=== PATIENT | male | born 1995 | race Caucasian/White ===

== ENCOUNTER 2021-10-29 10:51 | Outpatient (CLI) | payer OTHER | END 2021-10-29 10:52 | disposition home or self-care (01) | LOC: TOM 10:51 | PROVIDERS: ATTEND General Practice | DX: R04.2 Hemoptysis (principal) ==

== ENCOUNTER 2021-11-05 08:59 | Outpatient (CLI) | payer OTHER | END 2021-11-05 09:13 | disposition home or self-care (01) | LOC: TOM 08:59 | DX: R04.2 Hemoptysis (principal) | CPT/HCPCS: 71275 ==

== ENCOUNTER 2021-12-28 11:43 | Outpatient (CLI) | payer OTHER | END 2021-12-28 11:54 | disposition home or self-care (01) | LOC: TOM 11:43 | DX: R91.8 Other nonspecific abnormal finding of lung field (principal) ==

== ENCOUNTER 2022-02-10 10:31 | Outpatient (CLI) | payer OTHER | END 2022-02-10 10:41 | disposition home or self-care (01) | LOC: NUCLEAR 10:31 | DX: R06.00 Dyspnea, unspecified (principal); R91.8 Other nonspecific abnormal finding of lung field ==

== ENCOUNTER 2022-03-19 15:05 | Outpatient (CLI) | payer OTHER | END 2022-03-19 15:10 | disposition home or self-care (01) | LOC: LAB 15:05 | PROVIDERS: ATTEND Radiology Diagnostic Radiology | DX: R10.9 Unspecified abdominal pain (principal) ==

== ENCOUNTER 2022-03-24 10:45 | Outpatient (CLI) | payer OTHER | END 2022-03-24 10:50 | disposition home or self-care (01) | LOC: TOM 10:45 | DX: R91.8 Other nonspecific abnormal finding of lung field (principal) ==

== ENCOUNTER 2024-05-11 10:18 | Outpatient (CLI) | payer OTHER | END 2024-05-11 10:54 | disposition home or self-care (01) | LOC: TOM 10:18 | PROVIDERS: ATTEND General Practice | DX: R06.02 Shortness of breath (principal) ==